=== PATIENT | female | born 1995 ===

== ENCOUNTER 2018-04-12 15:20 | Emergency (ER) | payer OTHER ==
[2018-04-12 15:49] VITALS: BP 124/77
--- NOTE | 2018-04-12 18:53 | UC ---
Leanne Alves Jade, scribed for Olegario Morrow MD on 04/12/18 at 1615 . Complaint Female HPI - HPI Summary HPI Summary: Pt is a 22 y/o female who presents to [facility] [place] requesting a test. She states she used an at home test, and the results showed a faint line, so she wants confirmation. Her period is about 9 days late now (39 days since her last menstrual period), which is unusual because her period usually comes within 32 days. Pt also complains of some back cramps, and occasional dysuria in the morning. She and her partner are currently trying to get . Pt denies PMHx , or taking daily vitamins. - History Of Current Complaint Chief Complaint: UCGU Stated Complaint: PREG TEST Time Seen by Provider: 04/12/18 16:05 Hx Obtained From: Patient Hx Last Menstrual Period: 03/01/18 Onset/Duration: Still Present Timing: Constant Severity Currently: Moderate Pain Intensity: 4 Pain Scale Used: 0-10 Numeric Character: Cramping - Back, occasional Associated Signs And Symptoms: Positive: Back Pain - Cramping - Allergies/Home Medications Allergies/Adverse Reactions: Allergies Allergy/AdvReac Type Severity Reaction Status Date / Time No Known Allergies Allergy Verified 04/12/18 15:49 PMH/Surg Hx/FS Hx/Imm Hx Other Endocrine History: Conjunctivitis GI/ History: Other - NEGATIVE: Other GI/ History: . - Surgical History Surgical History: None - Family History Known Family History: Positive: Other - NEGATIVE: issues - Social History Alcohol Use: None Substance Use Type: None Smoking Status (MU): Never Smoked Tobacco Review of Systems Genitourinary: Dysuria - Occasional in morning, Other - Late menstrual period Musculoskeletal: Other: - Cramping back pain, occasional All Other Systems Reviewed And Are Negative: Yes Physical Exam - Summary Physical Exam Summary: General: well-appearing, no pain distress Skin: warm, color reflects adequate perfusion, dry Head: normal Eyes: EOMI, MAURICIO ENT: normal Neck: supple, nontender Respiratory: CTA, breath sounds present Cardiovascular: RRR Abdomen: soft, nontender Bowel: present Musculoskeletal: normal, strength/ROM intact Neurological: sensory/motor intact, A&O x3 Psychological: affect/mood appropriate Triage Information Reviewed: Yes Vital Signs: Initial Vital Signs Temp 99.7 F 04/12/18 15:46 Pulse 115 04/12/18 15:46 Resp 16 04/12/18 15:46 BP 124/77 04/12/18 15:46 Pulse Ox 100 04/12/18 15:46 Vital Signs Reviewed: Yes Complaint Female Dx - Course Course Of Treatment: DISCUSSED UA/PREG TEST RESULTS WITH THE PATIENT AND HER . PATIENT DOES HAVE SOME PELVIC CRAMPING THAT SHE DOES NOT DESCRIBE PAIN. RE EVAL IF WORSE. - Differential Dx/Diagnosis Provider Diagnoses: IRREGULAR MENSTRAL CYCLE Discharge - Sign-Out/Discharge Documenting (check all that apply): Discharge/Admit/Transfer - Discharge - Discharge Plan Condition: Stable Disposition: HOME Referrals: [facility] [place] [facility] REFERRAL [Outside] No Primary Care Phys,NOPCP [Primary Care Provider] - Additional Instructions: FOLLOW UP WITH YOUR DOCTOR NEEDED FOR YOUR LATE MENSTRUAL CYCLE. GET RECHECKED FOR ANY WORSENING OF YOUR CONDITION OR QUESTIONS OR CONCERNS. - Billing Disposition and Condition Condition: STABLE Disposition: Home The documentation as recorded by the Leanne fox Jade accurately reflects the service I personally performed and the decisions made by me, Olegario Morrow MD.
== END 2018-04-12 16:15 | disposition home or self-care (01) ==
LOC: UCEAST 15:20
DX: N92.6 Irregular menstruation, unspecified (principal)
CPT/HCPCS: 81003; 84702; 99212; G0463

== ENCOUNTER 2018-04-23 14:10 | Emergency (ER) | payer OTHER ==
--- NOTE | 2018-04-23 16:42 | RAD ---
Indication: Left flank pain. Real-time sonography of the pelvis was performed. There is a retroverted uterus. In the fundus of the uterus there appears to be a small gestational sac measuring 3 mm corresponding to gestational age of 4 weeks 5 days. There is double decidual reaction although no pole is identified at the present time. Follow-up exam is suggested. The right ovary measures 4.2 x 2.4 x 4.4 cm. Left ovary measures 3.4 x 2.4 x 3.0 cm. There is flow noted in both ovaries. IMPRESSION: There is a small fundal intrauterine gestational sac measuring 3 mm corresponding to gestational age of 4 weeks 5 days. Likely hemorrhagic cyst in the right ovary. Follow-up exam is suggested.
[2018-04-23 16:49] LABS: Urine Appearance Clear; Urine Blood Negative (Negative); Urine Color Yellow; Urine Ketones Negative (Negative); Urine Protein Negative (Negative); Urine Specific Gravity 1.012 (1.010-1.030); Urine Urobilinogen Negative (Negative)
[2018-04-23 16:54] LABS: ABS Basophils 0.1 10^3/ul (0-0.2); ABS Eosinophils 0 10^3/ul (0-0.6); ABS Lymphocytes 2.7 10^3/ul (1.0-4.8); ABS Monocytes 0.6 10^3/ul (0-0.8); ABS Neutrophils 4.5 10^3/ul (1.5-7.7); ABS Nucleated RBC 0 10^3/ul; Eosinophil % 0.4 % (0-6); Hematocrit 37 % (35-47); Hemoglobin 12.6 g/dl (12.0-16.0); Lymphocyte % 34.2 % (25-47); Mean Corpuscular HGB Conc 34 g/dl (31-36); Mean Corpuscular Hemoglobin 29 pg (27-31); Mean Corpuscular Volume 84 fL (80-97); Mean Platelet Volume 8.9 um3 (7.4-10.4); Nucleated Red Blood Cells % 0.1; Platelet Count 265 10^3/ul (150-450); Red Blood Count 4.32 10^6/ul (4.00-5.40); Red Cell Distribution Width 14 % (10.5-15); White Blood Count 7.9 10^3/ul (3.5-10.8)
[2018-04-23 17:20] LABS: EGFR Non-African American 167.3 (>60)
--- NOTE | 2018-04-23 19:25 | ED ---
Felipe Alves Simon, scribed for Bennie Cooney on 04/23/18 at 1811 . - HPI Summary HPI Summary: This patient is a 22 year old F presenting to [facility] accompanied by with a chief complaint of abnormal US 04/23/18. Pt endorses LLQ abd pain and left lower back pain, which started 2-3 weeks ago. Pt endorses being . G/P/A 1:0:0. She denies bleeding. LMP 03/01/18. Pt denies having a [facility] doctor. Pt denies smoking, drinking. Denies any PMHx. - History of Current Complaint Chief Complaint: EDFlankPain Stated Complaint: ABNORMAL ULTRASOUND Time Seen by Provider: 04/23/18 17:49 Hx Obtained From: Patient Chief Complaint: Other: - R/O ectopic Onset/Duration: Started Hours Ago Timing: Constant, Lasting Hours Severity: Mild Current Severity: Mild Pain Intensity: 3 Location of Pain: Left Side, Flank, Other: - LLQ abd Aggravating Factors: Nothing Alleviating Factors: Nothing Associated Signs and Symptoms: Positive: Back Pain. Negative: Vaginal Bleeding or Discharge - Allergies/Home Medications Allergies/Adverse Reactions: Allergies Allergy/AdvReac Type Severity Reaction Status Date / Time No Known Allergies Allergy Verified 04/23/18 15:06 PMH/Surg Hx/FS Hx/Imm Hx Endocrine/Hematology History: Denies: Hx Diabetes Cardiovascular History: Denies: Hx Hypertension History: Denies: Other Problems/Disorders Sensory History: Denies: Hx Legally Blind Opthamlomology History: Denies: Hx Legally Blind EENT History: Denies: Hx Deafness Neurological History: Denies: Other Neuro Impairments/Disorders Infectious Disease History: No Infectious Disease History: Denies: History Other Infectious Disease, Traveled Outside the [place] in Last 30 Days - Family History Known Family History: Negative: Cardiac Disease, Hypertension, Diabetes, Renal Disease, Blood Disorder, Other - NEGATIVE: issues - Social History Lives: With Family - Alcohol Use: None Hx Substance Use: No Substance Use Type: Reports: None Hx Tobacco Use: No Smoking Status (MU): Never Smoked Tobacco Review of Systems Negative: Fever Positive: Abdominal Pain - LLQ Positive: flank pain - left lower back. Negative: discharge - no bleeding All Other Systems Reviewed And Are Negative: Yes Physical Exam - Summary Physical Exam Summary: Appearance: Well appearing, no pain distress Skin: warm, dry, reflects adequate perfusion Head/face: normal Eyes: EOMI, MAURICIO ENT: normal Neck: supple, non-tender Respiratory: CTA, breath sounds present Cardiovascular: RRR, pulses symmetrical Abdomen: LLQ tenderness, soft Bowel: present Musculoskeletal: normal, strength/ROM intact Neuro: normal, sensory motor intact, A&Ox3 - Physical Exam Triage Information Reviewed: Yes Vital Signs Reviewed: Yes Diagnostics - Vital Signs Vital Signs Temp Pulse Resp BP Pulse Ox 04/23/18 16:35 98.6 F 83 16 119/63 100 04/23/18 15:01 99.1 F 100 17 114/64 100 - Laboratory Lab Results: Lab Results 04/23/18 04/23/18 04/23/18 Range/Units 16:29 16:32 16:32 WBC 7.9 (3.5-10.8) 10^3/ul RBC 4.32 (4.00-5.40) 10^6/ul Hgb 12.6 (12.0-16.0) g/dl Hct 37 (35-47) % MCV 84 (80-97) fL MCH 29 (27-31) pg MCHC 34 (31-36) g/dl RDW 14 (10.5-15) % Plt Count 265 (150-450) 10^3/ul MPV 8.9 (7.4-10.4) um3 Neut % (Auto) 56.9 (38-83) % Lymph % (Auto) 34.2 (25-47) % [place] % (Auto) 7.7 H (0-7) % Eos % (Auto) 0.4 (0-6) % Baso % (Auto) 0.8 (0-2) % Absolute Neuts (auto) 4.5 (1.5-7.7) 10^3/ul Absolute Lymphs (auto) 2.7 (1.0-4.8) 10^3/ul Absolute Monos (auto) 0.6 (0-0.8) 10^3/ul Absolute Eos (auto) 0 (0-0.6) 10^3/ul Absolute Basos (auto) 0.1 (0-0.2) 10^3/ul Absolute Nucleated RBC 0 10^3/ul Nucleated RBC % 0.1 Sodium 137 (135-145) mmol/L Potassium 4.3 (3.5-5.0) mmol/L Chloride 105 (101-111) mmol/L Carbon Dioxide 25 (22-32) mmol/L Anion Gap 7 (2-11) mmol/L BUN 9 (6-24) mg/dL Creatinine 0.47 L (0.51-0.95) mg/dL Est GFR ( Amer) 202.4 (>60) Est GFR (Non-Af Amer) 167.3 (>60) BUN/Creatinine Ratio 19.1 (8-20) Glucose 88 (70-100) mg/dL Calcium 9.6 (8.6-10.3) mg/dL Total Bilirubin 0.50 (0.2-1.0) mg/dL AST 13 (13-39) U/L ALT 10 (7-52) U/L Alkaline Phosphatase 37 (34-104) U/L Total Protein 7.6 (6.4-8.9) g/dL Albumin 4.5 (3.2-5.2) g/dL Globulin 3.1 (2-4) g/dL Albumin/Globulin Ratio 1.5 (1-3) Beta HCG, Quant 3897.00 mIU/mL Urine Color Yellow Urine Appearance Clear Urine pH 8.0 (5-9) Ur Specific [place] 1.012 (1.010-1.030) Urine Protein Negative (Negative) Urine Ketones Negative (Negative) Urine Blood Negative (Negative) Urine Nitrate Negative (Negative) Urine Bilirubin Negative (Negative) Urine Urobilinogen Negative (Negative) Ur Leukocyte Esterase Trace A (Negative) Urine WBC (Auto) Trace(0-5/hpf) (Absent) Urine RBC (Auto) Absent (Absent) Ur Squamous Epith Cells Present A (Absent) Urine Bacteria Absent (Absent) Urine Glucose Negative (Negative) Blood Type 04/23/18 Range/Units 16:32 WBC (3.5-10.8) 10^3/ul RBC (4.00-5.40) 10^6/ul Hgb (12.0-16.0) g/dl Hct (35-47) % MCV (80-97) fL MCH (27-31) pg MCHC (31-36) g/dl RDW (10.5-15) % Plt Count (150-450) 10^3/ul MPV (7.4-10.4) um3 Neut % (Auto) (38-83) % Lymph % (Auto) (25-47) % [place] % (Auto) (0-7) % Eos % (Auto) (0-6) % Baso % (Auto) (0-2) % Absolute Neuts (auto) (1.5-7.7) 10^3/ul Absolute Lymphs (auto) (1.0-4.8) 10^3/ul Absolute Monos (auto) (0-0.8) 10^3/ul Absolute Eos (auto) (0-0.6) 10^3/ul Absolute Basos (auto) (0-0.2) 10^3/ul Absolute Nucleated RBC 10^3/ul Nucleated RBC % Sodium (135-145) mmol/L Potassium (3.5-5.0) mmol/L Chloride (101-111) mmol/L Carbon Dioxide (22-32) mmol/L Anion Gap (2-11) mmol/L BUN (6-24) mg/dL Creatinine (0.51-0.95) mg/dL Est GFR ( Amer) (>60) Est GFR (Non-Af Amer) (>60) BUN/Creatinine Ratio (8-20) Glucose (70-100) mg/dL Calcium (8.6-10.3) mg/dL Total Bilirubin (0.2-1.0) mg/dL AST (13-39) U/L ALT (7-52) U/L Alkaline Phosphatase (34-104) U/L Total Protein (6.4-8.9) g/dL Albumin (3.2-5.2) g/dL Globulin (2-4) g/dL Albumin/Globulin Ratio (1-3) Beta HCG, Quant mIU/mL Urine Color Urine Appearance Urine pH (5-9) Ur Specific [place] (1.010-1.030) Urine Protein (Negative) Urine Ketones (Negative) Urine Blood (Negative) Urine Nitrate (Negative) Urine Bilirubin (Negative) Urine Urobilinogen (Negative) Ur Leukocyte Esterase (Negative) Urine WBC (Auto) (Absent) Urine RBC (Auto) (Absent) Ur Squamous Epith Cells (Absent) Urine Bacteria (Absent) Urine Glucose (Negative) Blood Type O Positive Result Diagrams: 04/23/18 16:32 04/23/18 16:32 Lab Statement: Any lab studies that have been ordered have been reviewed, and results considered in the medical decision making process. - Ultrasound No standard instances Ultrasound Interpretation: Positive (See Comments) Ultrasound Interpretation Completed By: Radiologist - There is a small fundal intrauterine gestational sac measuring 3 mm corresponding to gestational age of 4 weeks 5 days. Likely hemorrhagic cyst in the right ovary. Follow-up exam is suggested. Dr. Cooney has reviewed this report. Re-Evaluation - Re-Evaluation First Eval Re-Evaluation Time: 19:05 Change: Unchanged Comment: Feels good for d/c. spoke about [facility] referral. Course/Dx - Course Course Of Treatment: A 22-year-old F presents to the ED with a CC of R/O ectopic , [facility] (+) RLQ, right lower back pain. (-) vaginal bleeding. 1st , LMP 03/01/18. Transvaginal US reveals 4 week 5 day embryo, hemorrhagic cyst in right ovary. Blood work/UA obtained. - Differential Diagnosis/HQI/PQRI: Ectopic , Ovarian Cyst, Early - Diagnoses Provider Diagnoses: , Abdominal pain - Provider Notifications Discussed Care Of Patient With: Jose Soto Time Discussed With Above Provider: 19:00 Instructed by Provider To: Other - gave collateral, dr. soto accepted referral for appointment next week. Discharge - Sign-Out/Discharge Documenting (check all that apply): Discharge/Admit/Transfer - discharge - Discharge Plan Condition: Stable Disposition: HOME Patient Education Materials: (ED), Abdominal Pain (ED) Referrals: Jose Soto MD [Medical Doctor] - No Primary Care Phys,NOPCP [Primary Care Provider] - Additional Instructions: RETURN TO EMERGENCY DEPARTMENT FOR ANY CHANGING OR WORSENING SYMPTOMS. - Billing Disposition and Condition Condition: STABLE Disposition: Home The documentation as recorded by the Felipe fox Simon accurately reflects the service I personally performed and the decisions made by , Bennie Cooney.
[2018-04-23 19:42] VITALS: BP 113/72
== END 2018-04-23 19:20 | disposition home or self-care (01) ==
LOC: ED 14:10
DX: O26.891 Other specified pregnancy related conditions, first trimester (principal); R10.32 Left lower quadrant pain; Z3A.01 Less than 8 weeks gestation of pregnancy
CPT/HCPCS: 36415; 76817; 80053; 81003; 81015; 84702; 85025; 86900; 86901; 87086; 99282